=== PATIENT | male | born 1995 | race American Indian/Alaskan Native ===

== ENCOUNTER 2021-09-21 12:47 | Emergency (ER) | payer SELFPAY ==
[2021-09-21 12:53] VITALS: BP 110/67
[2021-09-21 14:03] LABS: Basophils % (Auto) 0.6 % (0.0-1.8); Eosinophils # (Auto) 0.1 K/mm3 (0.0-0.4); Eosinophils % (Auto) 1.4 % (0.0-4.3); Hematocrit 40.2 % (35.5-45.6); Hemoglobin 13.2 gm/dl (11.8-15.2); Lymphocytes % (Auto) 46.2 % (13.4-35.0); Mean Corpuscular HGB Conc 33 % (32-34); Mean Corpuscular Volume 94 fl (84-94); Monocytes # (Auto) 0.4 K/mm3 (0.0-0.8); Monocytes % (Auto) 10.2 % (0.0-7.3); Platelet Count 181 K/mm3 (140-440); Red Blood Count 4.26 M/mm3 (3.65-5.03); Red Cell Distribution Width 12.2 % (13.2-15.2)
--- NOTE | 2021-09-21 16:16 | Emergency Department Report ---
ED GI Bleed HPI - General Chief complaint: GI Bleed Stated complaint: LOW GI BLEED Time Seen by Provider: 09/21/21 16:07 Source: patient, EMS Mode of arrival: Stretcher Limitations: No Limitations - History of Present Illness Initial comments: 26-year-old -French male presents to the emergency room complaining of rectal bleeding for the last 6 months. Patient states this comes and goes. He states he tried changing his toilet tissue 12 flushable wipe. He denies any rectal intercourse. He states he has regular bowel movements but when he bears down at times it seems to have a hemorrhoid that pops out. Patient denies any rectal pain at this time. Patient denies any shortness of breath chest pain. Patient is requesting a work excuse until Sunday. MD complaint: blood on toilet paper Onset/Timin -: month(s) Severity scale (0 -10): 0 Quality: painless Improves with: none Worsens with: bowel movement (That he strained) Context: hemorrhoids Associated Symptoms: denies other symptoms. denies: abdominal pain, nausea, vomiting, headaches, shortness of breath, weakness Treatments Prior to Arrival: topical ointment - Related Data Allergies Allergy/AdvReac Type Severity Reaction Status Date / Time No Known Allergies Allergy Verified 09/21/21 12:53 ED Review of Systems ROS: Stated complaint: LOW GI BLEED Other details as noted in HPI Comment: All other systems reviewed and negative ED Physical Exam - General Limitations: No Limitations General appearance: alert, in no apparent distress - Head Head exam: Present: atraumatic, normocephalic - Eye Eye exam: Present: normal appearance - ENT ENT exam: Present: normal external ear exam - Neck Neck exam: Present: normal inspection, full ROM - Respiratory Respiratory exam: Absent: respiratory distress - Cardiovascular Cardiovascular Exam: Present: regular rate. Absent: systolic murmur, diastolic murmur, rubs, gallop - Extremities Exam Extremities exam: Present: normal inspection, full ROM - Back Exam Back exam: Present: normal inspection, full ROM - Neurological Exam Neurological exam: Present: alert, oriented X3, normal gait - Psychiatric Psychiatric exam: Present: normal affect, normal mood - Skin Skin exam: Present: warm, dry, intact, normal color. Absent: rash ED Course Vital Signs 09/21/21 12:49 Pulse Rate 76 Blood Pressure 110/67 [Left] O2 Sat by Pulse 100 Oximetry ED Medical Decision Making - Lab Data Result diagrams: 09/21/21 13:46 - Medical Decision Making 26-year-old -French male presents to the emergency room complaining of rectal bleeding for the last 6 months. Patient states this comes and goes. He states he tried changing his toilet tissue 12 flushable wipe. He denies any rec deanne intercourse. He states he has regular bowel movements but when he bears down at times it seems to have a hemorrhoid that pops out. Patient denies any rectal pain at this time. Patient denies any shortness of breath chest pain. Patient is requesting a work excuse until Sunday. Patient has a normal H&H. Discussed with patient to follow-up with her primary care provider or colorectal provider. Encourage patient to increase his fiber and water. Critical care attestation.: If time is entered above; I have spent that time in minutes in the direct care of this critically ill patient, excluding procedure time. ED Disposition Clinical Impression: Rectal bleed Disposition: HOME / SELF CARE / HOMELESS Is pt being admited?: No Does the pt Need Aspirin: No Condition: Stable Instructions: Rectal Bleeding, [id number] Additional Instructions: Your labs are stable no signs of blood loss. I recommended she increase your fluids increase your fiber intake follow-up with a primary care provider and a colorectal provider. Try to refrain from straining to have a bowel movement. Referrals: [facility] [Provider Group] - 3-5 Days LEIF ISABEL MD [Staff Physician] - 3-5 Days [facility] [Provider Group] - 3-5 Days Forms: Accompanied Note, Work/School Release Form(ED) Time of Disposition: 16:17
== END 2021-09-21 17:00 | disposition home or self-care (01) ==
LOC: ED 12:47
DX: K62.5 Hemorrhage of anus and rectum (principal)
CPT/HCPCS: 36415; 85025; 99283